=== PATIENT | female | born 1970 | race Caucasian/White ===

== ENCOUNTER 2017-12-10 23:45 | Emergency (ER) | payer BC ==
[2017-12-10 23:50] VITALS: BP 135/80; PULSE 94; RESP 18; TEMP 97.4; O2SAT 100
[2017-12-11 01:02] LABS: AUTOMATED NEUTROPHIL # 6.8 TH/MM3 (1.8-7.7); BASOPHIL % 0.3 % (0.0-2.0); EOSINOPHIL # 0.1 TH/MM3 (0-0.4); EOSINOPHIL % 0.7 % (0.0-4.0); HEMATOCRIT 44.1 % (35.0-46.0); HEMOGLOBIN 14.4 GM/DL (11.6-15.3); LYMPH % 41.5 % (9.0-44.0); LYMPHOCYTE # 5.6 TH/MM3 (1.0-4.8); MEAN CELL VOLUME 83.6 FL (80.0-100.0); MEAN CORPUSCULAR HEMOGLOBIN 27.3 PG (27.0-34.0); MEAN CORPUSCULAR HGB CONC 32.7 % (32.0-36.0); MONOCYTE # 1.1 TH/MM3 (0-0.9); NEUT % 49.5 % (16.0-70.0); PLATELET COUNT 269 TH/MM3 (150-450); RED BLOOD COUNT 5.28 MIL/MM3 (4.00-5.30); RED CELL DISTRIBUTION WIDTH 12.1 % (11.6-17.2); WHITE BLOOD COUNT 13.6 TH/MM3 (4.0-11.0)
[2017-12-11 01:11] LABS: CHLORIDE 99 MEQ/L (98-107); SODIUM (NA) 133 MEQ/L (136-145)
[2017-12-11 01:15] LABS: ALBUMIN 4.3 GM/DL (3.4-5.0); BICARBONATE 23.7 MEQ/L (21.0-32.0); CALCIUM 9.1 MG/DL (8.5-10.1); GLUCOSE,RANDOM 185 MG/DL (74-106)
[2017-12-11 01:16] LABS: BLOOD UREA NITROGEN 25 MG/DL (7-18)
[2017-12-11 01:18] LABS: ALT (GPT) 30 U/L (10-53); AST (GOT) 15 U/L (15-37); GLOMERULAR FILTRATION RATE 53 ML/MIN (>89)
[2017-12-11 01:20] LABS: TOTAL BILIRUBIN ADULT 0.3 MG/DL (0.2-1.0); TOTAL PROTEIN 8.4 GM/DL (6.4-8.2)
[2017-12-11 01:21] LABS: ALKALINE PHOSPHATASE 104 U/L (45-117)
--- NOTE | 2017-12-11 01:27 | RADRPT ---
EXAM DATE/TIME: 12/11/2017 01:06 [facility] COMPARISON: No previous studies available for comparison. INDICATIONS : ETOH. Status post fall and hit back of head RADIATION DOSE: 64.87 CTDIvol (mGy) MEDICAL HISTORY : Non-responsive. SURGICAL HISTORY : Non-responsive. ENCOUNTER: Initial ACUITY: 1 day PAIN SCALE: Non-responsive LOCATION: cranial TECHNIQUE: Multiple contiguous axial images were obtained of the head. Using automated exposure control and adj ustment of the mA and/or kV according to patient size, radiation dose was kept as low as reasonably a chievable to obtain optimal diagnostic quality images. DICOM format image data is available electro nically for review and comparison. FINDINGS: CEREBRUM: The ventricles are normal for age. No evidence of midline shift, mass lesion, hemorrhage or acute in farction. No extra-axial fluid collections are seen. POSTERIOR FOSSA: The cerebellum and brainstem are intact. The 4th ventricle is midline. The cerebellopontine angle i s unremarkable. EXTRACRANIAL: The visualized portion of the orbits is intact. SKULL: The calvaria is intact. No evidence of skull fracture. CONCLUSION: Normal examination. Davi Jones MD on December 11, 2017 at 1:24 Board Certified Radiologist. This report was verified electronically.
--- NOTE | 2017-12-11 01:55 | RADRPT ---
EXAM DATE/TIME: 12/11/2017 01:06 [facility] COMPARISON: No previous studies available for comparison. INDICATIONS : ETOH. Status post fall and hit back of head RADIATION DOSE: 26.54 CTDIvol (mGy) MEDICAL HISTORY : Non-responsive. SURGICAL HISTORY : Non-responsive. ENCOUNTER: Initial ACUITY: 1 day PAIN SCALE: Non-responsive LOCATION: neck TECHNIQUE: Volumetric scanning of the cervical spine was performed. Multiplanar reconstructions in the sagittal, coronal and oblique axial planes were performed. Using automated exposure control and adjustment o f the mA and/or kV according to patient size, radiation dose was kept as low as reasonably achievable to obtain optimal diagnostic quality images. DICOM format image data is available electronically f or review and comparison. FINDINGS: VERTEBRAE: Normal vertebral body height. There is moderate facet hypertrophic changes are seen C2-C3 and C3-4 on the left. ALIGNMENT: No evidence of subluxation. C2-C3: Mild left foraminal narrowing secondary to facet and uncovertebral hypertrophy. C3-C4: Severe left foraminal narrowing secondary to facet arthropathy. C4-C5: The bony spinal canal is normal in size. No evidence of disc bulge or herniation. The neural forami na are bilaterally patent. C5-C6: The bony spinal canal is normal in size. No evidence of disc bulge or herniation. The neural forami na are bilaterally patent. C6-C7: The bony spinal canal is normal in size. No evidence of disc bulge or herniation. The neural forami na are bilaterally patent. C7-T1: The bony spinal canal is normal in size. No evidence of disc bulge or herniation. The neural forami na are bilaterally patent. CONCLUSION: Degenerative changes without fracture or listhesis. Davi Jones MD on December 11, 2017 at 1:51 Board Certified Radiologist. This report was verified electronically.
[2017-12-11 02:00] VITALS: BP 152/75; PULSE 85; RESP 18; TEMP 98.2; O2SAT 98
--- NOTE | 2017-12-11 02:00 | PD ---
HPI Chief Complaint: Alcohol/Drug Intoxication Time Seen by Provider: 00:08 Travel History International Travel<30 days: No Contact w/Intl Traveler<30days: No Traveled to known affect area: No History of Present Illness HPI The patient is a 47-year-old female that had a number of drinks, possibly 4, and fell backwards and hit her occipital area on concrete at 11:15 PM tonight. The patient seemed to be confused and out of it, no definite seizure is noted. The patient has nausea and did vomit. No other injury was present. The patient is a diabetic. She does have a very similar reaction with nausea and vomiting to artificial sweeteners but she does not think that artificial sweeteners were given to her tonight at the bar she was at. [facility] Past Medical History Diabetes: Yes ?: Not Social History Tobacco Use: No Allergies-Medications (Allergen,Severity, Reaction): Uncoded Allergies: artificial sweetner (Allergy, Intermediate, 12/11/17) Review of Systems Except as stated in HPI: all other systems reviewed are Neg Physical Exam Narrative GENERAL: The patient is alert but does appear slightly intoxicated and smells of alcohol. Her vital signs are normal. SKIN: Focused skin assessment warm/dry. No contusion is seen on the face or head. HEAD: Atraumatic. Normocephalic. I cannot see any evidence of trauma on the occipital area. There is no deformity noted and no tenderness noted. EYES: Pupils equal and round. No scleral icterus. No injection or drainage. ENT: No nasal bleeding or discharge. Mucous membranes pink and moist. NECK: Trachea midline. No JVD. The patient has been moving neck without any apparent pain and there is no tenderness or deformity of the posterior spinous processes. CARDIOVASCULAR: Regular rate and rhythm. No murmur appreciated. RESPIRATORY: No accessory muscle use. Clear to auscultation. Breath sounds equal bilaterally. GASTROINTESTINAL: Abdomen soft, non-tender, nondistended. Hepatic and splenic margins not palpable. MUSCULOSKELETAL: No obvious deformities. No clubbing. No cyanosis. No edema. NEUROLOGICAL: Awake and alert. No obvious cranial nerve deficits. Motor grossly within normal limits. Normal speech. PSYCHIATRIC: The patient is exhibiting slow speech and does appear intoxicated; insight and judgment normal. Data Data Last Documented VS Vital Signs Date Time Temp Pulse Resp B/P (MAP) Pulse Ox O2 Delivery O2 Flow Rate FiO2 2/1/18 23:50 97.4 94 18 135/80 (98) [address] Brain W/O Iv Contrast(Rout) (12/11/17 00:37) Ct Cerv Spine W/O Contrast (12/11/17 00:37) Complete Blood Count With Diff (12/11/17 00:39) Comprehensive Metabolic Panel (12/11/17 00:39) Lipase (12/11/17 00:39) Alcohol (Ethanol) (12/11/17 00:39) Labs Laboratory Tests Test 12/11/17 00:42 White Blood Count 13.6 TH/MM3 Red Blood Count 5.28 MIL/MM3 Hemoglobin 14.4 GM/DL Hematocrit 44.1 % Mean Corpuscular Volume 83.6 FL Mean Corpuscular Hemoglobin 27.3 PG Mean Corpuscular Hemoglobin Concent 32.7 % Red Cell Distribution Width 12.1 % Platelet Count 269 TH/MM3 Mean Platelet Volume 9.0 FL Neutrophils (%) (Auto) 49.5 % Lymphocytes (%) (Auto) 41.5 % Monocytes (%) (Auto) 8.0 % Eosinophils (%) (Auto) 0.7 % Basophils (%) (Auto) 0.3 % Neutrophils # (Auto) 6.8 TH/MM3 Lymphocytes # (Auto) 5.6 TH/MM3 Monocytes # (Auto) 1.1 TH/MM3 Eosinophils # (Auto) 0.1 TH/MM3 Basophils # (Auto) 0.0 TH/MM3 CBC Comment DIFF FINAL Differential Comment Blood Urea Nitrogen 25 MG/DL Creatinine 1.10 MG/DL Random Glucose 185 MG/DL Total Protein 8.4 GM/DL Albumin 4.3 GM/DL Calcium Level 9.1 MG/DL Alkaline Phosphatase 104 U/L Aspartate Amino Transf (AST/SGOT) 15 U/L Alanine Aminotransferase (ALT/SGPT) 30 U/L Total Bilirubin 0.3 MG/DL Sodium Level 133 MEQ/L Potassium Level 3.5 MEQ/L Chloride Level 99 MEQ/L Carbon Dioxide Level 23.7 MEQ/L Anion Gap 10 MEQ/L Estimat Glomerular Filtration Rate 53 ML/MIN Lipase 370 U/L Ethyl Alcohol Level 273 MG/DL [facility] Medical Decision Making Medical Screen Exam Complete: Yes Emergency Medical Condition: Yes Medical Record Reviewed: Yes Interpretation(s) The CT brain shows a normal examination. The cervical spine shows no acute fracture. The complete metabolic profile shows a sodium of 133, BUN of 25, cranial 1.1, glucose of 185 but is otherwise unremarkable. The lipase is normal. Alcohol level is 273. The CBC shows a white count of 13,600 but is otherwise normal. Differential Diagnosis Concussion, head trauma, no: Intoxication, skull fracture, intracranial bleed- unlikely Narrative Course The patient may have had a concussion or simply be alcohol intoxicated. I suspect that she has components of both. She does have a midline frontal headache. At approximately 2 AM I woke her up and she seemed to wake up and answer questions appropriately. Diagnosis Primary Impression: Concussion Additional Impression: Alcohol intoxication Additional Instructions: Return to emergency department if worse. Avoid alcohol of course. Follow-up next week with your primary care physician. Avoid ocular stimuli such as video games and watching TV and avoid any contact sports. Med/Other Pt SpecificInfo: No Change to Meds Disposition: 01 DISCHARGE HOME Condition: Stable Ford Gonzáles MD Dec 11, 2017 02:00
== END 2017-12-11 02:16 | disposition home or self-care (01) ==
LOC: PHED 23:45
DX: S06.0X0A Concussion without loss of consciousness, initial encounter (principal); F10.129 Alcohol abuse with intoxication, unspecified; E11.9 Type 2 diabetes mellitus without complications; W19.XXXA Unspecified fall, initial encounter; Y90.8 Blood alcohol level of 240 mg/100 ml or more
CPT/HCPCS: 70450; 72125; 80053; 80307; 83690; 85025; 99284